=== PATIENT | male | born 1955 | race African-American/Black ===

== ENCOUNTER 2017-02-25 17:15 | Emergency (ER) | payer SELFPAY ==
[~2017-02-25] VITALS: Ht 175.3 cm; Wt 79.5 kg
[2017-02-25] MEDS ORDERED: CARV25 PO (17:22)
[2017-02-25] MEDS ORDERED: FURO20 PO (17:22)
[2017-02-25] MEDS ORDERED: LISI-662 PO (17:22)
[2017-02-25 18:49] VITALS: BP 160/100
== END 2017-02-25 19:56 | disposition left against medical advice (07) ==
LOC: EMS 17:21
DX: H53.8 Other visual disturbances (principal); R26.9 Unspecified abnormalities of gait and mobility; Z48.02 Encounter for removal of sutures; I10 Essential (primary) hypertension
CPT/HCPCS: 99281; 99283